=== PATIENT | female | born 1985 | race Caucasian/White ===

== ENCOUNTER 2019-09-27 05:42 | Emergency (ER) | payer SELFPAY ==
[~2019-09-27] VITALS: Ht 162.6 cm; Wt 63.5 kg
[2019-09-27 05:49] VITALS: Ht 162.6 cm; Wt 63.5 kg
[2019-09-27 07:17] LABS: BASOPHIL % 0.2 % (0-2); PLATELET COUNT 308 x10^3mcL (130-400)
[2019-09-27 07:26] LABS: CALCIUM 8.9 mg/dL (8.5-10.1); CARBON DIOXIDE 25.9 mmol/L (21-32); CHLORIDE SERUM 103 mmol/L (98-107); CREATININE SERUM 0.7 mg/dL (0.6-1.0); GFR1 > 60 mL/min; GLUCOSE SERUM 112 mg/dL (74-106); POTASSIUM SERUM 3.4 mmol/L (3.5-5.1); SODIUM SERUM 137 mmol/L (136-145)
[2019-09-27 07:31] LABS: ALBUMIN 3.8 g/dL (3.4-5.0); ALKALINE PHOSPHATASE 255 U/L (46-116); ALT/SGPT 312 U/L (14-59); AST/SGOT 406 U/L (15-37); BILIRUBIN TOTAL 1.72 mg/dL (0.20-1.00); C REACTIVE PROTEIN 1.7 mg/dL (<=0.9); LACTIC DEHYDROGENASE (LDH) 398 U/L (100-190); TOTAL PROTEIN, SERUM 7.8 g/dL (6.4-8.2)
[2019-09-27 07:49] LABS: RED CELL DISTRIBUTION WIDTH 17.5 % (11.5-14.5)
[2019-09-27 08:58] LABS: UA SPECIFIC GRAVITY >=1.030 (1.005-1.035); microscopic required? YES; urine erythrocyte 3+ (NEGATIVE)
[2019-09-27 09:22] VITALS: BP 120/87
== END 2019-09-27 09:22 | disposition home or self-care (01) ==
LOC: ED 05:42
PROVIDERS: Specialist
DX: R10.9 Unspecified abdominal pain (principal); R50.9 Fever, unspecified; Z20.828 Contact with and (suspected) exposure to other viral communicable diseases
CPT/HCPCS: 36415; 83880; 87804; Q0092